=== PATIENT | female | born 1985 | race Caucasian/White ===

== ENCOUNTER 2018-01-22 13:35 | Inpatient (IN) | payer OTHER ==
[~2018-01-22] VITALS: Ht 162.6 cm; Wt 90.4 kg
[2018-01-22 13:38] VITALS: Ht 162.6 cm; Wt 90.4 kg
[2018-01-22 14:17] LABS: CARBON DIOXIDE 25.9 mmol/L (21-32); CHLORIDE SERUM 103 mmol/L (98-107); CREATININE SERUM 0.8 mg/dL (0.6-1.0); GFR1 > 60 mL/min; GLUCOSE SERUM 137 mg/dL (74-106); POTASSIUM SERUM 3.9 mmol/L (3.5-5.1); SODIUM SERUM 138 mmol/L (136-145)
[2018-01-22 14:18] LABS: BASOPHIL % 0.3 % (0-2); PLATELET COUNT 169 x10^3mcL (130-400); RED CELL DISTRIBUTION WIDTH 13.6 % (11.5-14.5)
[2018-01-22 14:22] LABS: ALBUMIN 3.8 g/dL (3.4-5.0); ALKALINE PHOSPHATASE 57 U/L (46-116); ALT/SGPT 55 U/L (14-59); AST/SGOT 22 U/L (15-37); BILIRUBIN TOTAL 0.3 mg/dL (0.20-1.00); TOTAL PROTEIN, SERUM 7.7 g/dL (6.4-8.2)
[2018-01-22 14:49] LABS: LIPASE 5321 IU/L (73-393)
[2018-01-22 15:36] VITALS: BP 116/75
[2018-01-22 16:08] LABS: microscopic required? NO
[2018-01-22 16:46] LABS: CHOLESTEROL/HDL RATIO 3.8; MAGNESIUM 1.9 mg/dL (1.8-2.4)
[2018-01-22 16:53] LABS: T3 TOTAL 1.27 ng/mL
[2018-01-22 17:00] LABS: FREE T4 1.12 ng/dL (0.76-1.46); FREE THYROXINE INDEX 2.7 ug/dL (1.4-4.5); T4(THYROXINE) 8.5 ug/dL (4.7-13.3)
[2018-01-22 17:03] LABS: urine erythrocyte NEGATIVE (NEGATIVE)
[2018-01-22 17:11] LABS: AMPHETAMINE QUAL UR NONE DETECTED (NEG <=1000)
[2018-01-22 20:31] VITALS: BP 113/77
[2018-01-23 05:35] VITALS: BP 109/70
[2018-01-23 07:20] LABS: BASOPHIL % 0.3 % (0-2); PLATELET COUNT 140 x10^3mcL (130-400); RED CELL DISTRIBUTION WIDTH 13.9 % (11.5-14.5)
[2018-01-23 07:29] LABS: CALCIUM 7.9 mg/dL (8.5-10.1); CARBON DIOXIDE 24.6 mmol/L (21-32); CHLORIDE SERUM 107 mmol/L (98-107); CREATININE SERUM 0.7 mg/dL (0.6-1.0); GFR1 > 60 mL/min; GLUCOSE SERUM 99 mg/dL (74-106); POTASSIUM SERUM 3.8 mmol/L (3.5-5.1); SODIUM SERUM 140 mmol/L (136-145)
[2018-01-23 09:41] VITALS: BP 104/70
[2018-01-23 09:51] VITALS: BP 109/70
[2018-01-23 12:26] VITALS: BP 102/64
[2018-01-23 17:08] VITALS: BP 111/69
[2018-01-23 20:48] VITALS: BP 107/63
[2018-01-24 05:48] VITALS: BP 105/64
[2018-01-24 06:42] LABS: BASOPHIL % 0.4 % (0-2); CALCIUM 7.9 mg/dL (8.5-10.1); CARBON DIOXIDE 24.1 mmol/L (21-32); CHLORIDE SERUM 105 mmol/L (98-107); CREATININE SERUM 0.6 mg/dL (0.6-1.0); GFR1 > 60 mL/min; GLUCOSE SERUM 85 mg/dL (74-106); MAGNESIUM 1.9 mg/dL (1.8-2.4); POTASSIUM SERUM 3.7 mmol/L (3.5-5.1); RED CELL DISTRIBUTION WIDTH 13.7 % (11.5-14.5); SODIUM SERUM 137 mmol/L (136-145)
[2018-01-24 06:44] LABS: PLATELET COUNT 129 x10^3mcL (130-400)
[2018-01-24 19:01] VITALS: BP 123/79
[2018-01-24 20:30] VITALS: BP 129/93
[2018-01-25 06:18] VITALS: BP 120/78
[2018-01-25 07:24] LABS: BASOPHIL % 0.3 % (0-2); PLATELET COUNT 134 x10^3mcL (130-400); RED CELL DISTRIBUTION WIDTH 13.5 % (11.5-14.5)
[2018-01-25 07:39] LABS: CALCIUM 8.2 mg/dL (8.5-10.1); CARBON DIOXIDE 24.6 mmol/L (21-32); CHLORIDE SERUM 104 mmol/L (98-107); CREATININE SERUM 0.7 mg/dL (0.6-1.0); GFR1 > 60 mL/min; GLUCOSE SERUM 90 mg/dL (74-106); MAGNESIUM 1.9 mg/dL (1.8-2.4); PHOSPHOROUS 3.1 mg/dL (2.5-4.9); POTASSIUM SERUM 3.8 mmol/L (3.5-5.1); SODIUM SERUM 138 mmol/L (136-145)
[2018-01-25 09:02] VITALS: BP 109/63
[2018-01-25 12:33] VITALS: BP 116/80
[2018-01-25 16:38] VITALS: BP 114/76
[2018-01-25 20:13] VITALS: BP 125/79
[2018-01-26 05:40] VITALS: BP 117/77
[2018-01-26 06:35] LABS: BASOPHIL % 0.4 % (0-2); PLATELET COUNT 160 x10^3mcL (130-400); RED CELL DISTRIBUTION WIDTH 13.4 % (11.5-14.5)
[2018-01-26 06:57] LABS: CALCIUM 8.2 mg/dL (8.5-10.1); CARBON DIOXIDE 22.6 mmol/L (21-32); CHLORIDE SERUM 103 mmol/L (98-107); CREATININE SERUM 0.6 mg/dL (0.6-1.0); GFR1 > 60 mL/min; GLUCOSE SERUM 89 mg/dL (74-106); MAGNESIUM 2.1 mg/dL (1.8-2.4); PHOSPHOROUS 3.4 mg/dL (2.5-4.9); POTASSIUM SERUM 4.1 mmol/L (3.5-5.1); SODIUM SERUM 135 mmol/L (136-145)
[2018-01-26 08:36] VITALS: BP 102/72
[2018-01-26 12:08] VITALS: BP 102/72
[2018-01-26] MEDS ORDERED: NORCO1 TA2 PO (13:35)
== END 2018-01-26 14:45 | disposition home or self-care (01) | DRG 282 ==
LOC: ED 13:35 → MU 14:56 → DU 14:56 → MU 01-25 18:11
PROVIDERS: Emergency Medicine; Family Medicine
DX: K85.90 Acute pancreatitis without necrosis or infection, unspecified (principal); E83.51 Hypocalcemia; E87.1 Hypo-osmolality and hyponatremia; J45.909 Unspecified asthma, uncomplicated; E86.0 Dehydration; E66.9 Obesity, unspecified; Z68.34 Body mass index [BMI] 34.0-34.9, adult; E78.5 Hyperlipidemia, unspecified; D75.1 Secondary polycythemia; F43.0 Acute stress reaction; D72.829 Elevated white blood cell count, unspecified; Z91.040 Latex allergy status
CPT/HCPCS: 83880; 84439; G0480; J1885; J2550; J3010; J7030; J7620; Q0092; Q0162; Q9967

== ENCOUNTER 2018-07-29 19:31 | Emergency (ER) | payer OTHER ==
[~2018-07-29 19:31] MED LIST: NORCO1 TA2 PO
[2018-07-29 23:49] VITALS: BP 110/83
== END 2018-07-29 23:49 | disposition home or self-care (01) ==
LOC: ED 19:31
DX: R51 Headache (principal); M54.5 Low back pain; J45.909 Unspecified asthma, uncomplicated; Z91.040 Latex allergy status
CPT/HCPCS: J1885

== ENCOUNTER 2018-08-05 18:32 | Emergency (ER) | payer OTHER ==
[2018-08-05 18:38] VITALS: Ht 162.6 cm
[2018-08-05 20:41] VITALS: BP 114/72
== END 2018-08-05 20:41 | disposition home or self-care (01) ==
LOC: ED 18:32
DX: J45.909 Unspecified asthma, uncomplicated (principal); M54.41 Lumbago with sciatica, right side; Z91.040 Latex allergy status
CPT/HCPCS: J1885

== ENCOUNTER 2019-12-21 13:11 | Emergency (ER) | payer OTHER ==
[~2019-12-21] VITALS: Ht 157.5 cm; Wt 68.0 kg
[2019-12-21 13:49] VITALS: Ht 157.5 cm; Wt 68.0 kg
[2019-12-21 15:14] VITALS: BP 125/75
== END 2019-12-21 15:14 | disposition home or self-care (01) ==
LOC: ED 13:11
DX: J45.909 Unspecified asthma, uncomplicated (principal); Z91.040 Latex allergy status
CPT/HCPCS: 87804